=== PATIENT | male | born 1980 | race Caucasian/White ===

== ENCOUNTER 2020-03-20 19:17 | Emergency (ER) | payer BC ==
[~2020-03-20] VITALS: Wt 72.6 kg
[2020-03-20 19:51] LABS: BASO % 0.5 % (0.0-1.0); EOS # 0.5 10*3/uL (0.0-0.4); EOS % 5.6 % (1.0-4.0); HEMATOCRIT 42.4 % (42.0-52.0); LYMPH # 1.9 10*3/uL (1.3-4.4); LYMPH % 22.6 % (27.0-41.0); MEAN CELL VOLUME 88.3 fl (80.0-94.0); MEAN PLATELET VOLUME 8.7 fl (9.6-12.3); MONO # 0.8 10*3/uL (0.1-1.0); NEUT # 5.2 10*3/uL (2.3-7.9); NEUT % 61.8 % (47.0-73.0); PLATELET COUNT AUTOMATED 371 10*3/uL (130-400); RED CELL DISTRI WIDTH 12.2 % (0-14.5); WHITE BLOOD COUNT 8.4 10*3/uL (4.8-10.8)
[2020-03-20 20:03] LABS: BUN 9 mg/dl (7-24); CHLORIDE 103 mmol/L (98-107); CREATININE 0.92 mg/dL (0.70-1.30); POTASSIUM 4.2 mmol/L (3.5-5.1); SODIUM 140 mmol/L (136-145); URIC ACID 8.3 mg/dL (3.5-7.2)
[2020-03-20] MEDS ORDERED: INDOMETHACIN50 MG PO (20:20)
[2020-03-20] MEDS ORDERED: COLCRYS0.6 M1 PO (20:21)
== END 2020-03-20 19:26 | disposition home or self-care (01) ==
LOC: ED 19:17
PROVIDERS: Nurse Practitioner Family
DX: M10.9 Gout, unspecified (principal)

== ENCOUNTER 2020-10-05 13:20 | Emergency (ER) | payer BC ==
[~2020-10-05] VITALS: Ht 172.7 cm; Wt 72.6 kg
[~2020-10-05 13:20] MED LIST: COLCRYS0.6 M1 PO; INDOMETHACIN50 MG PO
[2020-10-05] MEDS ORDERED: PREDNISONE20 M1 PO (14:19)
== END 2020-10-05 14:35 | disposition home or self-care (01) ==
LOC: ED 13:20
DX: R13.10 Dysphagia, unspecified (principal)

== ENCOUNTER 2020-12-03 15:23 | Emergency (ER) | payer BC ==
[~2020-12-03] VITALS: Ht 172.7 cm; Wt 70.3 kg
[~2020-12-03 15:23] MED LIST changes: +PREDNISONE20 M1 PO
== END 2020-12-03 16:26 | disposition home or self-care (01) ==
LOC: ED 15:23
DX: R13.10 Dysphagia, unspecified (principal); Z79.899 Other long term (current) drug therapy